=== PATIENT | female | born 2000 | race Caucasian/White ===

== ENCOUNTER 2024-04-17 14:19 | Emergency (ER) | payer OTHER ==
[2024-04-17] MEDS ORDERED: Ondansetron ODT 4 MG TAB ONE (14:30)
== END 2024-04-17 16:43 | disposition home or self-care (01) ==
LOC: CSHERS 14:19
DX: R11.2 Nausea with vomiting, unspecified (principal); R19.7 Diarrhea, unspecified; F17.290 Nicotine dependence, other tobacco product, uncomplicated
CPT/HCPCS: 99283; Q0162